=== PATIENT | male | born 1935 | race Two or more races ===

== ENCOUNTER 2024-10-24 09:58 | Emergency (ER) | payer OTHER ==
[~2024-10-24] VITALS: Ht 175.3 cm; Wt 63.5 kg
[2024-10-24 12:33] LABS: HEMATOCRIT 25.7 % (39.0-48.0); MEAN CELL VOLUME 115.3 fL (80.0-100.00); MEAN CORPUSCULAR HGB CONC 34.3 g/dl (32.0-36.0); RED BLOOD COUNT 2.23 M/uL (4.00-6.00); RED CELL DISTRIBUTION WIDTH 16.7 % (11.5-14.5)
[2024-10-24 12:37] LABS: HEMOGLOBIN 8.8 g/dL (13-16.00); MEAN CORPUSCULAR HEMOGLOBIN 39.4 pg (27.00-32.0); PLATELET COUNT 100 K/uL (150-450)
[2024-10-24 12:42] LABS: CREATININE SERUM 2.11 mg/dL (0.70-1.30); GFR 29.79; POTASSIUM 5.32 mEq/L (3.5-5.1)
[2024-10-24 16:38] LABS: URINE APPEARANCE Clear; URINE BILIRRUBIN Negative (NEGATIVE); URINE BLOOD Negative; URINE COLOR Yellow; URINE GLUCOSE Negative (NEGATIVE); URINE KETONE Negative (NEGATIVE); URINE LEUKOCYTE Negative; URINE NITRATE Negative; URINE PROTEIN Negative (NEGATIVE)
[2024-10-24 16:49] LABS: URINE BACTERIA 1.2 uL (0.0-1933); URINE CAST 0.29 uL (0.0-1.40); URINE WBC 1.5 uL (0.0-23.2)
[2024-10-24] MEDS ORDERED: MIRALAX510 GM PO (18:12)
[2024-10-25] MEDS ORDERED: 0.9 % SODIUM CHLORIDE 1,000 ML IV SCH (09:00)
== END 2024-10-24 18:18 | disposition home or self-care (01) ==
LOC: ER 10:01
PROVIDERS: Emergency Medicine
DX: K59.00 Constipation, unspecified (principal); I10 Essential (primary) hypertension
CPT/HCPCS: 36415; 74176; 96365; 99283; J3490